=== PATIENT | female | born 2005 | race African-American/Black ===

== ENCOUNTER 2023-12-02 12:49 | Emergency (ER) | payer SELFPAY ==
[~2023-12-02] VITALS: Ht 147.3 cm; Wt 49.0 kg
[2023-12-02 13:04] VITALS: TEMP 98.3; O2SAT 100
[2023-12-02] MEDS ORDERED: KETOROLAC 15MG/ML VIAL IM ONE (14:15)
[2023-12-02] MEDS ORDERED: LIDOCAINE 5% PATCH TOP SCH (15:15)
[2023-12-02] MEDS ORDERED: ACETAMINOPHEN 325MG TABLET PO ONE (15:15)
[2023-12-02] MEDS ORDERED: LIDO700A15 TP (15:41)
[2023-12-02] MEDS ORDERED: NAPR-1176 MT (15:41)
[2023-12-02 16:00] VITALS: BP 115/68; PULSE 79; RESP 19
== END 2023-12-02 17:21 | disposition home or self-care (01) ==
LOC: ER 13:41
DX: M25.552 Pain in left hip (principal)
CPT/HCPCS: 81025; 73502; 99283; J1885; Z7610